=== PATIENT | female | born 1965 | race Caucasian/White ===

== ENCOUNTER 2024-03-07 12:47 | Outpatient (CLI) | payer BC | END 2024-03-07 12:48 | disposition home or self-care (01) | LOC: CSHRAD 12:47 | PROVIDERS: ATTEND Physician Assistant Medical | DX: K52.9 Noninfective gastroenteritis and colitis, unspecified (principal); R10.31 Right lower quadrant pain; K59.00 Constipation, unspecified; B02.29 Other postherpetic nervous system involvement | CPT/HCPCS: 74019 ==